=== PATIENT | female | born 1990 | race Caucasian/White ===

== ENCOUNTER 2018-09-12 11:44 | Emergency (ER) | payer MEDICAID ==
[~2018-09-12] VITALS: Ht 175.3 cm; Wt 133.8 kg
[~2018-09-12 11:44] MED LIST: ABILIFY10 MG; ABILIFY30 MG; ALBUTEROL2.5 MG/0.1; ANTABUSE250 M1 PO; BACTRIM DS TAB1 EACH PO; BACTROBAN CREAM30 G1 TOP; BITH CONTROL; CELEXA 20 MG TA20 M1; CIPRO250 M1 PO; HYDROCODONE-AP1 EAC6 PO; HYDROXYZINE HCL10 M1; IBUPROFEN 600600 M1 PO; IBUPROFEN 800800 M1 PO; IBUPROFEN 800800 MG PO; INVEGA1.5 MG; INVEGA1.5 MG PO; LATUDA120 MG PO; LITHIUM CARBON600 MG; MACROBID 100 M100 M1 PO; MEDROLDOSEPACK PO; NAPROSYN500 MG PO; NORCO 5-325 TA1 EAC1 PO; NORCO 5-325 TA1 EACH PO; PERCOCET 5-3251 EACH PO; PROMETHAZINE12.5 M1 PO; TEGRETOL XR200 MG; TESSALON200 MG PO; TORADOL 10 MG T10 MG PO; ULTRAM 50MG TAB50 MG PO; VALIUM5 MG PO; VISTARIL PO; WELLBUTRIN 100100 M1; ZANTAC 7575 MG PO; ZPAK PO; ZYRTEC10 M4 PO; [UNRECOGNIZED DRUG - REMARK]; [UNRECOGNIZED DRUG - REMARK]
[2018-09-12] MEDS ORDERED: INVEGA SUS117 MG/0.7 IM (12:01)
[2018-09-12 12:30] LABS: URINE BILIRUBIN NEGATIVE (Negative); URINE BLOOD 2+ (Negative); URINE CLARITY CLOUDY; URINE COLOR YELLOW; URINE GLUCOSE-RANDOM NEGATIVE (Negative); URINE KETONES NEGATIVE (Negative); URINE LEUKOCYTES-REFLEX TRACE (Negative); URINE NITRITE-REFLEX NEGATIVE (Negative); URINE PROTEIN NEGATIVE (Negative); URINE SPECIFIC GRAVITY 1.015 (1.005-1.030); URINE UROBILINOGEN 0.2 E.U./dl (0.2-1.0)
[2018-09-12 12:37] LABS: BACTERIA-REFLEX 1-9 Few /HPF (None Seen); CASTS None Seen /LPF (None Seen); CRYSTALS None Seen /LPF (None Seen); MUCUS None Seen strn/LPF (None Seen); SQUAMOUS 0-3 Few /LPF (0-3); URINE RBC 3-10 Few /HPF (0-2); URINE WBC-REFLEX 0-5 Rare /HPF (0-5)
[2018-09-12] MEDS ORDERED: NAPROSYN500 MG PO (14:49)
[2018-09-12] MEDS ORDERED: BACTRIM DS TAB1 EACH PO (14:49)
[2018-09-12] MEDS ORDERED: NORCO 5-325 TA1 EACH PO (14:49)
[2018-09-12 15:12] VITALS: BP 135/80
== END 2018-09-12 15:14 | disposition home or self-care (01) ==
LOC: M.ERS 11:44
PROVIDERS: Nurse Practitioner Family
DX: S83.8X1A Sprain of other specified parts of right knee, initial encounter (principal); N39.0 Urinary tract infection, site not specified; R31.9 Hematuria, unspecified; F31.9 Bipolar disorder, unspecified; E11.9 Type 2 diabetes mellitus without complications; J45.909 Unspecified asthma, uncomplicated; F20.9 Schizophrenia, unspecified; F17.210 Nicotine dependence, cigarettes, uncomplicated; Z90.49 Acquired absence of other specified parts of digestive tract; Z91.041 Radiographic dye allergy status; Z91.013 Allergy to seafood; W00.9XXA Unspecified fall due to ice and snow, initial encounter; Y93.89 Activity, other specified; Y92.89 Other specified places as the place of occurrence of the external cause; Y99.8 Other external cause status

== ENCOUNTER 2019-01-02 01:33 | Emergency (ER) | payer MEDICAID ==
[~2019-01-02] VITALS: Ht 175.3 cm; Wt 136.1 kg
[~2019-01-02 01:33] MED LIST changes: +INVEGA SUS117 MG/0.7 IM
[2019-01-02] MEDS ORDERED: CLEOCIN HCL150 MG PO (02:09)
[2019-01-02 02:34] VITALS: BP 146/83
== END 2019-01-02 02:34 | disposition home or self-care (01) ==
LOC: M.ERS 01:33
DX: S61.411A Laceration without foreign body of right hand, initial encounter (principal); F17.210 Nicotine dependence, cigarettes, uncomplicated; F31.9 Bipolar disorder, unspecified; F20.9 Schizophrenia, unspecified; E11.9 Type 2 diabetes mellitus without complications; J45.909 Unspecified asthma, uncomplicated; Z91.041 Radiographic dye allergy status; Z90.49 Acquired absence of other specified parts of digestive tract; Z91.013 Allergy to seafood; Z90.89 Acquired absence of other organs; Y04.0XXA Assault by unarmed brawl or fight, initial encounter; Y93.89 Activity, other specified; Y92.89 Other specified places as the place of occurrence of the external cause; Y99.8 Other external cause status

== ENCOUNTER 2019-01-16 10:06 | Emergency (ER) | payer MEDICAID ==
[~2019-01-16] VITALS: Ht 175.3 cm; Wt 135.2 kg
[~2019-01-16 10:06] MED LIST changes: +CLEOCIN HCL150 MG PO
[2019-01-16 10:11] VITALS: BP 122/76
[2019-01-16] MEDS ORDERED: KEFLEX500 M1 PO (10:23)
[2019-01-16] MEDS ORDERED: BACTRIM DS TAB1 EACH PO (10:23)
== END 2019-01-16 10:33 | disposition home or self-care (01) ==
LOC: M.ERS 10:06
DX: S61.411D Laceration without foreign body of right hand, subsequent encounter (principal); L08.9 Local infection of the skin and subcutaneous tissue, unspecified; X58.XXXD Exposure to other specified factors, subsequent encounter; F31.9 Bipolar disorder, unspecified; E11.9 Type 2 diabetes mellitus without complications; J45.909 Unspecified asthma, uncomplicated; F20.9 Schizophrenia, unspecified; Z90.49 Acquired absence of other specified parts of digestive tract; F17.210 Nicotine dependence, cigarettes, uncomplicated; Z91.041 Radiographic dye allergy status; Z91.013 Allergy to seafood